=== PATIENT | female | born 1955 | race Caucasian/White ===

== ENCOUNTER → 2017-02-12 | Outpatient (CLI) | payer BC ==
--- NOTE | 2017-02-12 08:42 | RAD ---
Right breast ultrasound, 02/12/2017: History: Follow-up breast nodule A targeted ultrasound exam of the right breast was performed at the 10:00 location and compared to a study from 08/12/2016. Again noted is a oval-shaped hypoechoic nodule. It is wider than it is tall. Its margins are fairly smooth. There is no definite posterior acoustic enhancement or shadowing. It currently measures 1.4 x 0.7 x 1.1 cm compared to measurements of 1.1 x 0.8 x 0.9 cm on the previous study. This slight apparent interval increase in size may be due on a technical basis due to differences in angulation. The sonographic characteristics again suggest a complicated cyst or small fibroadenoma. A circumscribed malignancy is much less likely. No new abnormality is seen in this region. IMPRESSION: Possible slight interval increase in size of the right breast nodule. Further sonographic follow-up in 6 months at the time of the patient's yearly mammograms is suggested. BI-RADS 3-probably benign findings
== END | disposition home or self-care (01) ==
LOC: KCIC US 07:55
PROVIDERS: ATTEND Obstetrics & Gynecology
DX: R92.8 Other abnormal and inconclusive findings on diagnostic imaging of breast (principal)
CPT/HCPCS: 76641

== ENCOUNTER → 2017-09-25 | Outpatient (CLI) | payer BC ==
[~2017-09-25] VITALS: Ht 162.6 cm; Wt 90.7 kg
[~2017-09-25] MED LIST: VIT1TABL32 PO
--- NOTE | 2017-09-25 10:43 | RAD ---
Ultrasound-guided right breast biopsy 09/25/2017 Clinical indication: Enlarging right breast mass. Comparison: Bilateral mammogram 09/07/2017, 07/30/2016, right breast ultrasound 09/08/2017, 02/12/2017 and 08/12/2016. Findings/technique: Procedure was discussed with the patient including benefits and risks which included but are not limited to bleeding, infection and damage to adjacent structures. Patient wished to proceed and signed written informed consent. Patient was placed supine on the imaging table. An appropriate site in the right breast was marked, prepped and draped in the usual sterile fashion. A timeout was performed according to institutional protocol. A small amount of 1% lidocaine was used to anesthetize the overlying soft tissues in the right breast. Under ultrasound guidance, a single 14-gauge core biopsy sample was obtained of the circumscribed hypoechoic breast mass at the caudal position 5 cm from the nipple with immediate decompression of the mass. Subsequent imaging did not demonstrate a significant residual mass. The biopsy sample demonstrated only a few tiny areas of tissue which was submitted to formalin and sent to pathology for analysis. Hemostasis was achieved. Impression: Single core biopsy sample of right breast mass 10:00 position 5 cm of the nipple, with immediate decompression of the mass post biopsy, highly suggestive of a cyst. Pathology pending.
--- NOTE | 2017-09-28 15:15 | PATHOLOGY ---
PATHOLOGY REPORT * * * * * * * * FINAL DIAGNOSIS: Right breast needle biopsy: - Minute segments of fibrous tissue identified. COMMENT: Sections of the right breast needle biopsy reveal a few minute segments of fibrous tissue. There is no epithelial lining identified. While these could have originated from a cyst wall, I cannot be certain that the findings are truly indirect sales representative of the lesion. Correlate with clinical and radiographic findings. (JPM:mgr; 09/28/2017) REPORT ELECTRONICALLY SIGNED BY: Harsh Hilliard M.D. DATE/TIME: 09/28/2017 15:14 * * * * * * * * GROSS PATHOLOGY: Received in formalin labeled "Wendy Reyna, right breast," are minute segments of yellow-felder soft tissue measuring 0.1 x 0.1 x 0.2 cm in aggregate dimensions. The tissue is submitted in its entirety in cassette A1 through A3. The cold ischemic time is 5 minutes. The total formalin fixation time is 12 hours. Due to the extremely minute nature of the specimens, it may not survive processing. (TSD; 09/25/2017) INITIAL CPT CODE(S): A; 91669 Professional services performed by [facility] at [address] [address] Technical services performed by [facility] at [address] [place] [address], [address], [place] [address]. Aguilera [facility] Radiology [phone] SPECIMEN(S) RECEIVED: A.Right breast biopsy CLINICAL HISTORY: Abnormal mammogram right breast, decompressed area biopsies, most likely cyst PATIENT: WENDY REYNA /AGE: 1110/04/1955 (Age: 61) PATIENT #: [id number] ALT CASE #: SPECIMEN COLLECTION DATE: 09/25/2017 SPECIMEN RECEIVED DATE: 09/25/2017 [facility] - [id number] [address] - PHONE: [phone] * * * END OF REPORT * * *
== END | disposition home or self-care (01) ==
LOC: US 08:22
PROVIDERS: ATTEND Obstetrics & Gynecology
DX: N63.10 Unspecified lump in the right breast, unspecified quadrant (principal)
CPT/HCPCS: 19081; 76942; 88305

== ENCOUNTER → 2017-10-12 | Outpatient (CLI) | payer BC ==
--- NOTE | 2017-10-12 14:21 | KCIC ---
Right breast diagnostic digital mammogram: Reason for examination: Follow-up biopsy. Comparison is made to previous examinations dated 09/07/2017, 07/30/2016 and 05/21/2015. Interpretation was made with the benefit of CAD. The skin and nipple show no abnormalities. No abnormal axillary lymph nodes are seen. The breast parenchyma shows scattered fibroglandular density. (Breast density: Category B.) There continues to be a small 9 mm nodule in the 10:00 B position of the right breast. This shows a decrease in overall size since previous exam and may represent redevelopment of a cyst. There are no other new dominant masses, suspicious calcifications or architectural distortions. Impression: 9 mm nodule at the 10:00 B position of the right breast. This may represent a recurring cyst. Recommend reevaluation in 6 months with mammograms and ultrasound. BI-RADS Category 3: Probably benign. Recommend 6 month follow-up. "Our facility is accredited by the [employer] Mammography [employer]." This patient's information has been entered into a reminder system for the patient to be notified with the results of her examination and a target date for the next mammogram. Electronically signed by: Catarina Olguin MD (10/12/2017 2:17 PM) [id number]
== END | disposition home or self-care (01) ==
LOC: KCIC MAMMO 13:33
PROVIDERS: ATTEND Obstetrics & Gynecology
DX: N63.10 Unspecified lump in the right breast, unspecified quadrant (principal); R92.2 Inconclusive mammogram
CPT/HCPCS: G0206; 77065

== ENCOUNTER → 2018-04-02 | Outpatient (CLI) | payer BC | END | disposition home or self-care (01) | LOC: KCIC MAMMO 12:23 | DX: N60.01 Solitary cyst of right breast (principal) | CPT/HCPCS: 76641; 77065 ==

== ENCOUNTER → 2018-09-13 | Outpatient (CLI) | payer BC ==
--- NOTE | 2018-09-13 17:10 | KCIC ---
Bilateral digital screening mammograms: Reason for examination: Routine screening. Comparison is made to previous studies dated 09/07/2017 and 07/30/2016. Interpretation was made with the benefit of CAD. The skin and nipples show no abnormalities. No abnormal axillary lymph nodes are seen. The breast parenchyma shows scattered fibroglandular density. (Breast density: Category B.) There has been regression of the nodule seen previously in the upper outer quadrant of the right breast. There are no new dominant masses, suspicious calcifications or architectural distortions. Impression: No evidence of malignancy. Recommend routine screening. BI-RADS Category 2: Benign. "Our facility is accredited by the [employer] Mammography [employer]." This patient's information has been entered into a reminder system for the patient to be notified with the results of her examination and a target date for the next mammogram. Electronically signed by: Catarina Olguin MD (09/13/2018 5:06 PM) [id number]
== END | disposition home or self-care (01) ==
LOC: KCIC MAMMO 14:11
PROVIDERS: ATTEND Obstetrics & Gynecology
DX: Z12.31 Encounter for screening mammogram for malignant neoplasm of breast (principal)
CPT/HCPCS: 77067

== ENCOUNTER → 2021-02-26 | Outpatient (CLI) | payer MEDICARE, BC ==
--- NOTE | 2021-02-26 13:02 | KCIC ---
Bilateral digital screening mammograms with 3-D tomosynthesis: Reason for examination: Routine screening. Comparison is made to previous studies dated back to 07/30/2016. Bilateral mammograms in CC and oblique projections were obtained with 2-D imaging and 3-D tomosynthes is imaging on a Siemens Inspiration unit and reviewed on the workstation. Interpretation was made philippe shoemaker the benefit of CAD. The skin and nipples show no abnormalities. No abnormal axillary lymph nodes are seen. The breast par enchyma shows scattered fatty and fibroglandular density. (Breast density: Category B.) There are sma ll nodular densities present bilaterally which appear to be in the superior right breast and in the u pper outer quadrant of the left breast and in the lower inner quadrant of the left breast. Further ev aluation with bilateral breast ultrasound is recommended. There are no suspicious calcifications seen .. Impression: Small nodular densities bilaterally. Ultrasound follow-up is recommended. BI-RAD Category 0: Incomplete. Needs additional imaging evaluation. "Our facility is accredited by the [employer] Mammography [employer]." This patient's information has been entered into a reminder system for the patient to be notified wit sahara the results of her examination and a target date for the next mammogram. Electronically signed by: Catarina Olguin MD (02/26/2021 1:00 PM) [id number]
== END ==
LOC: KCIC MAMMO 10:49
PROVIDERS: ATTEND Family Medicine
DX: Z12.31 Encounter for screening mammogram for malignant neoplasm of breast (principal)
CPT/HCPCS: 77063; 77067

== ENCOUNTER → 2021-11-21 | Outpatient (CLI) | payer MEDICARE, BC ==
--- NOTE | 2021-11-21 12:24 | KCIC ---
Bilateral diagnostic digital mammograms with 3-D tomosynthesis: Reason for examination: Follow-up nodules. Comparison is made to previous studies dated back to 09/07/2017. Bilateral mammograms in CC and oblique projections were obtained with 2-D imaging and 3-D tomosynthes is imaging on a Siemens Inspiration unit and reviewed on the workstation. Interpretation was made wit h the benefit of CAD. The skin and nipples show no abnormalities. No abnormal axillary lymph nodes are seen. The breast par enchyma shows scattered fatty and fibroglandular density. (Breast density: Category B.) There continu e to be several small circumscribed nodules bilaterally. Further evaluation with ultrasound will foll ow. There are no suspicious calcifications seen. Impression: Small nodular densities seen bilaterally. Ultrasound to follow. BI-RAD Category 0: Incomplete. Needs additional imaging evaluation. Bilateral breast ultrasound: Comparison is made to previous study dated 02/26/2021. Ultrasound examinations bilaterally of the breasts and axilla was performed. In the right breast at the 12:00 position 3 cm from the nipple, there continues to be a small 5.1 mm hypoechoic fibrocystic lesion and a deeper 4.9 mm hypoechoic fibrocystic lesion. At the 9:30 position 6 cm from the nipple, there are 2 small hypoechoic fibrocystic lesions measuring 4.8 and 5.2 mm in g reatest dimensions. No suspicious-appearing lesions are seen. No abnormal appearing lymph nodes are s een in the right axilla. In the left breast at the 12:00 position 3 cm from the nipple, there is a small 4.1 mm hypoechoic fib rocystic lesion. At the 1:00 position 6 cm from the nipple, there are 2 small fibrocystic lesions jamal suring 5.6 and 4.3 mm in greatest dimensions. At the 3:00 position 8 cm from the nipple, there is a 5 .7 mm hypoechoic fibrocystic lesion. No suspicious-appearing nodules are seen. No abnormal appearing lymph nodes are seen in the left axilla. IMPRESSION: Benign-appearing fibrocystic lesions bilaterally. No suspicious lesion seen. Recommend 6 month follow -up with bilateral breast ultrasound. BI-RADS Category 3: Probably Benign. "Our facility is accredited by the [employer] Mammography Program." This patient's information has been entered into a reminder system for the patient to be notified wit h the results of her examination and a target date for the next mammogram. Electronically signed by: Catarina Olguin MD (11/21/2021 12:22 PM) [email or web address]
== END ==
LOC: KCIC MAMMO 09:19
PROVIDERS: ATTEND Family Medicine
DX: N64.89 Other specified disorders of breast (principal); R92.8 Other abnormal and inconclusive findings on diagnostic imaging of breast
CPT/HCPCS: 76641; 77066; G0279; 77062